=== PATIENT | female | born 1985 | race Caucasian/White ===

== ENCOUNTER 2017-10-04 09:45 | Emergency (ER) | payer OTHER ==
[2017-10-04 10:03] VITALS: BP 151/77
--- NOTE | 2017-10-04 10:47 | UC ---
Neck Pain HPI - HPI Summary HPI Summary: Patient woke up with left-sided neck pain this morning. Was feeling well yesterday and last night. Pain is worse with movement of her head. No radiation of the pain. No numbness or tingling. No fevers or headache. Took 600 mg ibuprofen with no relief. - History of Current Complaint Chief Complaint: UCBackPain Stated Complaint: NECK COMPLAINT Time Seen by Provider: 10/04/17 10:23 Hx Obtained From: Patient Hx Last Menstrual Period: 09/17/17 Mechanism Of Injury: No Known Trauma Timing: Constant Onset/Duration: Lasting Hours, Still Present Pain Intensity: 6 Pain Scale Used: 0-10 Numeric Location: Discrete At: - LEFT NECK Character: Sharp Aggravating Factors: Movement Alleviating Factors: Position Associated Signs & Symptoms: Negative: Swelling, Redness, Fever, Nuchal Rigity, Weakness, Headache, Paresthesia - Allergies/Home Medications Allergies/Adverse Reactions: Allergies Allergy/AdvReac Type Severity Reaction Status Date / Time No Known Allergies Allergy Verified 10/04/17 10:01 Home Medications: Home Medications Ibuprofen 600 mg PO Q8H 10/04/17 [History Confirmed 10/04/17] PMH/Surg Hx/FS Hx/Imm Hx - Additional Past Medical History Additional PMH: Neurofibromatosis type I - Surgical History Surgical History: Yes Surgery Procedure, Year, and Place: BONE SPUR ON LEFT SHOULDER - Family History Known Family History: Negative: Hypertension - Social History Alcohol Use: Occasionally Substance Use Type: None Smoking Status (MU): Never Smoked Tobacco Review Of Systems Constitutional: Positive: Negative Respiratory: Positive: Negative Cardiovascular: Positive: Negative Gastrointestinal: Positive: Negative Musculoskeletal: Positive: Decreased ROM, Myalgia All Other Systems Reviewed And Are Negative: Yes Physical Exam Triage Information Reviewed: Yes Appearance: Well-Appearing, No Pain Distress, Well-Nourished Vital Signs: Initial Vital Signs Temp 99 F 10/04/17 09:56 Pulse 108 10/04/17 09:56 Resp 16 10/04/17 09:56 BP 151/77 10/04/17 09:56 Pulse Ox 100 10/04/17 09:56 Vital Signs Reviewed: Yes Eyes: Positive: Conjunctiva Clear ENT: Positive: Hearing grossly normal Neck: Positive: Supple, Tenderness @ - Left trapezius muscle. Negative: Nuchal Rigidity Respiratory: Positive: No respiratory distress, No accessory muscle use Cardiovascular: Positive: Pulses Normal Abdomen Description: Positive: Soft Musculoskeletal: Positive: No Edema, ROM Limited @ - MILDLY DECREASED ROM NECK, Other: - TENDER LEFT TRAPEZIUS MUSCLE Neurological: Positive: Alert Psychological: Positive: Age Appropriate Behavior Skin: Negative: rashes Neck Pain Course/Dx - Differential Dx/Diagnosis Provider Diagnoses: ACUTE MUSCLE STRAIN - LEFT TRAPEZIUS Discharge - Sign-Out/Discharge Documenting (check all that apply): Discharge/Admit/Transfer - Discharge Plan Condition: Stable Disposition: HOME Prescriptions: Cyclobenzaprine TAB* [Flexeril TAB*] 10 mg PO BID PRN #30 tab PRN Reason: Pain Patient Education Materials: Muscle Strain (ED) Referrals: No Primary Care Phys,NOPCP [Primary Care Provider] - Additional Instructions: YOUR SYMPTOMS SHOULD IMPROVE SIGNIFICANTLY OVER THE NEXT FEW DAYS. IF YOU DO NOT IMPROVE EXPECTED FOLLOW-UP HERE OR WITH A PCP. REST. OTC IBUPROFEN OR ALEVE NEEDED FOR DISCOMFORT. TAKE MUSCLE RELAXER BEFORE BED. BE SURE TO GO THROUGH SLOW RANGE OF MOTION AND STRETCHING EXERCISES DAILY YOU ARE ABLE TO PREVENT STIFFENING UP AND MAKING THE DISCOMFORT WORSE. CALL THE NUMBER BELOW FOR ASSISTANCE IN ESTABLISHING WITH A PCP An additional resource available to assist in finding the appropriate physician for your health care needs is [facility] ([facility]). You may contact them by calling [phone]. - Billing Disposition and Condition Condition: STABLE Disposition: Home
== END 2017-10-04 10:53 | disposition home or self-care (01) ==
LOC: UCCORT 09:45
DX: M54.2 Cervicalgia (principal); S46.812A Strain of other muscles, fascia and tendons at shoulder and upper arm level, left arm, initial encounter; X58.XXXA Exposure to other specified factors, initial encounter; Y92.9 Unspecified place or not applicable
CPT/HCPCS: 99202; G0463

== ENCOUNTER 2018-09-22 09:30 | Emergency (ER) | payer OTHER ==
[2018-09-22 10:10] VITALS: BP 120/69
--- NOTE | 2018-09-22 10:34 | UC ---
Lower Extremity/Ankle HPI - HPI Summary HPI Summary: 32 yo female injured both ankles when she mis-stepped going down three days ago able to bear wt but with 7/10 pain R worse than L pain and swelling [place] no hx ankle fractures - History of Current Complaint Chief Complaint: UCLowerExtremity Stated Complaint: BILATERAL ANKLE INJURY Hx Obtained From: Patient Hx Last Menstrual Period: 09/10/18 Onset/Duration: Sudden Onset, Lasting Days Severity Initially: Moderate Severity Currently: Moderate Pain Intensity: 6 - 1-2 when not wt bearing Pain Scale Used: 0-10 Numeric Aggravating Factor(s): Standing, Ambulation Alleviating Factor(s): Rest, Elevation Able to Bear Weight: Yes Feet (Multiple View): 1 - tender/swollen 2 - tender/swollen - Allergies/Home Medications Allergies/Adverse Reactions: Allergies Allergy/AdvReac Type Severity Reaction Status Date / Time No Known Allergies Allergy Verified 09/22/18 10:03 Home Medications: Home Medications Desogestrel-Ethinyl Estradiol [Isibloom 28 Day Tablet] 1 each PO DAILY 09/22/18 [History Confirmed 09/22/18] PMH/Surg Hx/FS Hx/Imm Hx Previously Healthy: Yes - neurofibromatosis - Surgical History Surgical History: Yes Surgery Procedure, Year, and Place: BONE SPUR ON LEFT SHOULDER - Family History Known Family History: Negative: Cardiac Disease, Hypertension, Diabetes - Social History Alcohol Use: Occasionally Substance Use Type: None Smoking Status (MU): Never Smoked Tobacco Review of Systems All Other Systems Reviewed And Are Negative: Yes Constitutional: Positive: Negative Skin: Positive: Negative Eyes: Positive: Negative ENT: Positive: Negative Respiratory: Positive: Negative Cardiovascular: Positive: Negative Gastrointestinal: Positive: Negative Genitourinary: Positive: Negative Motor: Positive: Negative Neurovascular: Positive: Negative Musculoskeletal: Positive: Arthralgia - R>L ankle Neurological: Positive: Negative Psychological: Positive: Negative Physical Exam Triage Information Reviewed: Yes Appearance: Well-Appearing, No Pain Distress, Well-Nourished Vital Signs: Initial Vital Signs Temp 99.3 F 09/22/18 10:04 Pulse 78 09/22/18 10:04 Resp 18 09/22/18 10:04 BP 120/69 09/22/18 10:04 Pulse Ox 100 09/22/18 10:04 Vital Signs Reviewed: Yes Eyes: Positive: Conjunctiva Clear ENT: Positive: Hearing grossly normal, Uvula midline. Negative: Nasal congestion, Nasal drainage, Tonsillar swelling, Tonsillar exudate Neck: Positive: Supple, Nontender, No Lymphadenopathy Respiratory: Positive: Lungs clear, Normal breath sounds, No respiratory distress, No accessory muscle use Cardiovascular: Positive: RRR, No Murmur Abdomen Description: Positive: Nontender, Soft Bowel Sounds: Positive: Present Musculoskeletal: Positive: Other: - see image - knee and foot exams normal, tender both LM, gait not tested Neurological: Positive: Alert Psychological Exam: Normal Skin Exam: Other - [facility] Diagnostics - Radiology No standard instances Radiology Interpretation Completed By: Radiologist Summary of Radiographic Findings: lat STS bilat, no fx Lower Extremity Course/Dx - Differential Dx/Diagnosis Provider Diagnosis: Right ankle sprain, Left ankle sprain Discharge - Sign-Out/Discharge Documenting (check all that apply): Patient Departure All imaging exams completed and their final reports reviewed: Yes - Discharge Plan Condition: Stable Disposition: HOME Patient Education Materials: Ankle Sprain (ED), R.I.C.E. Treatment (ED) Forms: *Work Release Referrals: Lewis Donohue MD [Medical Doctor] - 1 Week (recheck in 1-2 weeks if not better) Additional Instructions: advil or aleve - Billing Disposition and Condition Condition: STABLE Disposition: Home
== END 2018-09-22 11:55 | disposition home or self-care (01) ==
LOC: UCCORT 09:30
DX: S93.402A Sprain of unspecified ligament of left ankle, initial encounter (principal); S93.401A Sprain of unspecified ligament of right ankle, initial encounter; W10.9XXA Fall (on) (from) unspecified stairs and steps, initial encounter; Y92.9 Unspecified place or not applicable; Q85.00 Neurofibromatosis, unspecified
CPT/HCPCS: 99214; G0463